=== PATIENT | male | born 1975 | race Two or more races ===

== ENCOUNTER 2019-04-03 19:11 | Inpatient (IN) | payer MEDICAID ==
[~2019-04-03] VITALS: Ht 157.5 cm; Wt 81.8 kg
[2019-04-03] MEDS: DOCUSATE SODIUM 100 MG CAPSULE PO SCH (03:00)
[2019-04-03] MEDS ORDERED: SODIUM CHLORIDE 0.9% 1,000 ML IV ONE (20:15)
[2019-04-03] MEDS ORDERED: CLINDAMYCIN 600 MG/D5% WATER 50 ML IV ONE (20:15)
[2019-04-03] MEDS ORDERED: ACETAMINOPHEN 500 MG TABLET PO ONE (20:15)
[2019-04-03] MEDS ORDERED: KETOROLAC TROMETHAMINE 30 MG/ML VIAL IVP ONE (20:15)
[2019-04-03 20:32] LABS: BASOPHILS % (AUTO) 0.4 % (0.0-2.0); EOSINOPHILS % (AUTO) 1.5 % (1.0-6.0); HEMATOCRIT 40.9 % (41-53); HEMOGLOBIN 13.8 g/dL (13.5-17.5); LYMPHOCYTES # (AUTO) 2.4 K/uL (1.0-4.8); LYMPHOCYTES % (AUTO) 25.3 % (22.0-44.0); MEAN CORPUSCULAR HEMOGLOBIN 31.3 pg (26.0-34.0); MEAN CORPUSCULAR HGB CONC 33.6 G/dL (31.0-37.0); MEAN CORPUSCULAR VOLUME 93 fL (80-100); MONOCYTES # (AUTO) 0.8 K/uL (0.1-1.0); MONOCYTES % (AUTO) 8.4 % (2.0-9.0); NEUTROPHILS % (AUTO) 64.4 % (40.0-70.0); PLATELET COUNT (AUTO) 233 K/uL (150-450); RED CELL DISTRIBUTION WIDTH 13.8 % (11.5-14.5)
[2019-04-03 20:46] LABS: ANION GAP 11 mmol/L (8-16); CALCIUM, TOTAL 8.6 mg/dL (8.8-10.5); CARBON DIOXIDE 27 mmol/L (22-29); CHLORIDE 102 mmol/L (98-107); CREATININE 0.62 mg/dL (0.60-1.30); GLOMERULAR FILTR. RATE CALC > 60 mL/min (>60); GLUCOSE,RANDOM 129 mg/dL (70-110); POTASSIUM 3.4 mmol/L (3.5-5.1); SODIUM SERUM 140 mmol/L (136-145); UREA NITROGEN, BLOOD 21 mg/dL (7-18)
[2019-04-03] MEDS ORDERED: IOVERSOL 350 MG/ML 100 ML VIAL ONE (21:48)
[2019-04-03] MEDS ORDERED: SODIUM CHLORIDE 0.9% 100 ML ONE (21:48)
[2019-04-03] MEDS ORDERED: ACETAMINOPHEN 325 MG TABLET PO PRN (23:15)
[2019-04-03] MEDS ORDERED: 0.9% SODIUM CHLORIDE 10 ML SYRINGE IVP PRN ×2 (23:15→23:45)
[2019-04-03] MEDS ORDERED: ONDANSETRON HCL 4 MG/2 ML VIAL IVP PRN ×2 (23:15→23:45)
[2019-04-04] VITALS (8 sets, daily range): BP systolic 122–181; BP diastolic 74–108
[2019-04-04] MEDS: PIPERACILLIN/TAZO 3.375 GM/D5W 50 ML IV SCH ×5 (00:17→23:04)
[2019-04-04] MEDS: OxyCODONE HCL/ACETAMINOPHEN 5-325 MG TABLET PO PRN ×3 (02:38→19:43)
[2019-04-04] MEDS ORDERED: MORPHINE SULFATE 2 MG/ML SYRINGE IVP PRN ×2 (04:45→11:15)
[2019-04-04] MEDS ORDERED: SODIUM CHLORIDE 0.9% 500 ML IV ONE (05:09)
[2019-04-04 07:05] LABS: BASOPHILS % (AUTO) 0.2 % (0.0-2.0); HEMATOCRIT 41.6 % (41-53); LYMPHOCYTES # (AUTO) 1.4 K/uL (1.0-4.8); LYMPHOCYTES % (AUTO) 14.6 % (22.0-44.0); MEAN CORPUSCULAR HEMOGLOBIN 31.5 pg (26.0-34.0); MEAN CORPUSCULAR HGB CONC 33.7 G/dL (31.0-37.0); MEAN CORPUSCULAR VOLUME 93 fL (80-100); MONOCYTES # (AUTO) 0.6 K/uL (0.1-1.0); MONOCYTES % (AUTO) 6.1 % (2.0-9.0); NEUTROPHILS # (AUTO) 7.6 K/uL (1.8-7.7); NEUTROPHILS % (AUTO) 78.1 % (40.0-70.0); PLATELET COUNT (AUTO) 227 K/uL (150-450); RED BLOOD CELL COUNT(AUTO) 4.45 MIL/uL (4.50-5.90); RED CELL DISTRIBUTION WIDTH 13.8 % (11.5-14.5)
[2019-04-04 07:13] LABS: ANION GAP 8 mmol/L (8-16); CALCIUM, TOTAL 8.3 mg/dL (8.8-10.5); CARBON DIOXIDE 29 mmol/L (22-29); CHLORIDE 101 mmol/L (98-107); CREATININE 0.54 mg/dL (0.60-1.30); GLOMERULAR FILTR. RATE CALC > 60 mL/min (>60); GLUCOSE,RANDOM 137 mg/dL (70-110); POTASSIUM 3.4 mmol/L (3.5-5.1); SODIUM SERUM 138 mmol/L (136-145); UREA NITROGEN, BLOOD 12 mg/dL (7-18)
[2019-04-04] MEDS: DOCUSATE SODIUM 100 MG CAPSULE PO SCH ×2 (10:03→19:43)
[2019-04-04] MEDS ORDERED: CloNIDine HCL 0.1 MG TABLET PO PRN (11:15)
[2019-04-04] MEDS ORDERED: POTASSIUM CHLORIDE 10% 40 MEQ/30 ML LIQUID UDCUP PO ONE (11:15)
[2019-04-04] MEDS ORDERED: VANCOMYCIN HCL 1 GM/D5% WATER 200 ML IV ONE (13:00)
[2019-04-04] MEDS: FAMOTIDINE 10 MG/ML 2 ML VIAL IVP SCH (18:29)
[2019-04-04] MEDS: VANCOMYCIN HCL 1.25 GM in DEXTROSE 5%-WATER 250 ML IV SCH (19:43)
[2019-04-05 03:46] VITALS: BP 137/83
[2019-04-05] MEDS: OxyCODONE HCL/ACETAMINOPHEN 5-325 MG TABLET PO PRN ×3 (05:23→21:07)
[2019-04-05] MEDS: PIPERACILLIN/TAZO 3.375 GM/D5W 50 ML IV SCH ×2 (05:23→12:15)
[2019-04-05 07:31] LABS: HEMOGLOBIN A1C 6.5 % (3.8-5.6)
[2019-04-05 07:33] LABS: ALANINE AMINOTRANSFERASE 25 U/L (12-78); ALBUMIN 3.2 g/dL (3.4-5.0); ALKALINE PHOSPHATASE 82 U/L (46-116); ANION GAP 5 mmol/L (8-16); ASPARTATE AMINOTRANSFERASE 16 U/L (15-37); BILIRUBIN,TOTAL 1.2 mg/dL (0.1-1.0); CALCIUM, TOTAL 8.4 mg/dL (8.8-10.5); CARBON DIOXIDE 31 mmol/L (22-29); CHLORIDE 101 mmol/L (98-107); CREATININE 0.69 mg/dL (0.60-1.30); GLOMERULAR FILTR. RATE CALC > 60 mL/min (>60); GLUCOSE,RANDOM 116 mg/dL (70-110); SODIUM SERUM 137 mmol/L (136-145); TOTAL PROTEIN, SERUM 6.9 g/dL (6.4-8.2); UREA NITROGEN, BLOOD 15 mg/dL (7-18)
[2019-04-05 08:19] VITALS: BP 139/78
[2019-04-05] MEDS: DOCUSATE SODIUM 100 MG CAPSULE PO SCH ×2 (08:41→21:00)
[2019-04-05] MEDS: VANCOMYCIN HCL 1.25 GM in DEXTROSE 5%-WATER 250 ML IV SCH (08:41)
[2019-04-05] MEDS: FAMOTIDINE 10 MG/ML 2 ML VIAL IVP SCH (08:41)
[2019-04-05 11:48] VITALS: BP 138/75
[2019-04-05 15:34] VITALS: BP 149/94
[2019-04-05] MEDS: AMPICILLIN SODIUM/SULBACTAM NA 3 GM in SODIUM CHLORIDE 0.9% 100 ML IV SCH (17:48)
[2019-04-05 20:07] VITALS: BP 143/95
[2019-04-05 23:43] VITALS: BP 147/84
[2019-04-06] MEDS: AMPICILLIN SODIUM/SULBACTAM NA 3 GM in SODIUM CHLORIDE 0.9% 100 ML IV SCH ×2 (00:07→06:51)
[2019-04-06 04:59] VITALS: BP 156/94
[2019-04-06] MEDS ORDERED: AMOX1TAB15 PO (08:06)
[2019-04-06 08:17] VITALS: BP 157/98
[2019-04-06] MEDS: DOCUSATE SODIUM 100 MG CAPSULE PO SCH (09:19)
[2019-04-06] MEDS: FAMOTIDINE 10 MG/ML 2 ML VIAL IVP SCH (09:19)
== END 2019-04-06 12:20 | disposition home or self-care (01) | DRG 383 ==
LOC: EMS 19:12 → EDBD 19:12 → 6N 04-04 00:04
PROVIDERS: ADMIT Internal Medicine; ATTEND Internal Medicine
DX: L03.211 Cellulitis of face (principal); E66.9 Obesity, unspecified; K05.6 Periodontal disease, unspecified; E87.6 Hypokalemia; I10 Essential (primary) hypertension; K04.7 Periapical abscess without sinus; Z68.33 Body mass index [BMI] 33.0-33.9, adult
CPT/HCPCS: 70487; 83036; J0295; J1885; J2270; J2543; J3370; J3490; J7030; J7040; J7050; J7060